=== PATIENT | male | born 1995 | race Caucasian/White ===

== ENCOUNTER 2016-04-20 22:53 | Emergency (ER) | payer BC ==
[~2016-04-20] VITALS: Ht 170.2 cm; Wt 61.1 kg
[2016-04-20 23:02] VITALS: TEMP 37; Ht 170.2 cm; Wt 61.1 kg
[2016-04-20] MEDS ORDERED: SODIUM CHLORIDE 0.9% 1000ML 1,000 ML IV ONE ×2 (23:15)
[2016-04-20] MEDS ORDERED: ONDANSETRON INJ 2 MG/ML 2 ML VIAL IV STA (23:15)
[2016-04-20 23:33] LABS: BASO % 0.1 %; BASO ABS # 0.01 K/uL (0-0.2); COMPLETE YES; EOS % 1.3 %; HEMATOCRIT 46.5 % (42-52); IG% 0.2 %; LYMPH % 10.3 %; LYMPH ABS # 1.19 K/uL (1.2-3.4); MEAN CELL VOLUME 92.4 fL (80-100); MEAN CORPUSCULAR HEMOGLOBIN 33.6 pg (25-34); MEAN CORPUSCULAR HGB CONC 36.3 g/dl (32-36); MEAN PLATELET VOLUME 12.6 fL (7.4-10.4); MONO % 7.9 %; NEUT % 80.2 %; PLATELET COUNT 222 K/uL (130-400); RED BLOOD COUNT 5.03 M/uL (4.7-6.1)
[2016-04-20 23:50] LABS: BUN/CREATININE RATIO 16.3 (10-20); CALCIUM 9.6 mg/dl (8.5-10.1); POTASSIUM 3.7 mmol/L (3.5-5.1)
[2016-04-20 23:53] LABS: ALB/GLOB RATIO 1.4 (0.9-2)
[2016-04-21] MEDS ORDERED: DiphenhydrAMINE HCL 50 MG/ML VIAL IV STA (00:20)
[2016-04-21] MEDS ORDERED: METHYLPREDNISOLONE 125 MG VIAL IV STA (00:20)
[2016-04-21 01:42] LABS: URINE APPEARANCE TURBID (CLEAR); URINE BILIRUBIN NEG (NEG); URINE COLOR DK YELLOW; URINE EPITHELIAL CELL AUTO >30 /lpf (0-5); URINE NITRITE NEG (NEG); URINE PH 5.5 (4.5-7.5); URINE SPECIFIC GRAVITY 1.036 (1.000-1.030); UROBILINOGEN NEG (NEG); ZZUR CULT IF INDIC CLEAN CATCH NO
[2016-04-21 01:50] LABS: MANUAL MICROSCOPIC REQUIRED? NO; REVIEW REQ? NO
[2016-04-21] MEDS ORDERED: PRED20TA2 PO (02:15)
[2016-04-21 02:26] VITALS: BP 124/60; PULSE 55; O2SAT 99
--- NOTE | 2016-04-24 22:37 | EMERGENCY ROOM VISIT NOTE ---
History First contact with patient: 23:06 Chief Complaint: ABDOMINAL PAIN Stated Complaint: ABD PAIN FOLLOWING 30+ HOURS OF VOMITING/DIARRHEA Nursing Triage Summary: abd pain and cramping with vomiting and diarrhea since wednesday. History of Present Illness The patient is a 20 year old male who presents to the Emergency Room with complaints of nausea, vomiting, and diarrhea for the past 30 hours. The patient has not been able to eat and drink well, prompting his presentation to the department. He does not have a recent travel history and has not recently been on antibiotics. The patient rates his overall discomfort a 9/10. He does not have known exposure to disease, but is a student on campus. He has not had a fever, and he considers himself otherwise usually healthy. Review of Systems More than 10 systems were reviewed and otherwise negative with the exception of history of present illness. Past Medical/Surgical History No chronic medical disease Family History No pertinent family history Social History Smoking Status: Never Smoker Occupation Status: [employer] student Current/Historical Medications Scheduled Prednisone (Prednisone Tab), 2 TAB PO DAILY Allergies Coded Allergies: Ondansetron (Verified Allergy, Intermediate, hives, 04/21/16) Physical Exam Vital Signs Date Time Temp Pulse Resp B/P Pulse Ox O2 Delivery O2 Flow Rate FiO2 04/21/16 02:26 55 20 124/60 99 04/21/16 00:20 49 20 125/66 100 Room Air 04/20/16 23:02 37.0 52 18 131/84 100 Room Air Pain Rating (0-10): 0 Physical Exam VITALS: Vitals are noted on the nurse's note and reviewed by myself. Vital signs stable. GENERAL: Well-developed, well-nourished, white male who appears cooperative with the examination. HEAD: Normocephalic atraumatic. MOUTH: Mucous membranes dry. Tonsils are not enlarged. Pharynx without erythema, blood, or exudate. Uvula midline. Airway patent. NECK: Supple without nuchal rigidity. No lymphadenopathy. No thyromegaly. Cervical spine is nontender. HEART: Regular rate and rhythm without murmurs gallops or rubs. LUNGS: Clear to auscultation bilaterally without wheezes, rales or rhonchi. No retractions or accessory muscle use. ABDOMEN: Positive normal bowel sounds x 4. Soft, nontender, without masses or organomegaly. No guarding or rebound tenderness. MUSCULOSKELETAL: No muscle atrophy, erythema, or edema noted. Full range of motion without joint tenderness in all extremities. Skin without tenting. Medical Decision & Procedures Laboratory Results 04/20/16 23:25 Red Blood Count 5.03, Mean Corpuscular Volume 92.4, Mean Corpuscular Hemoglobin 33.6, Mean Corpuscular Hemoglobin Concent 36.3, Mean Platelet Volume 12.6, Neutrophils (%) (Auto) 80.2, Lymphocytes (%) (Auto) 10.3, Monocytes (%) (Auto) 7.9, Eosinophils (%) (Auto) 1.3, Basophils (%) (Auto) 0.1, Neutrophils # (Auto) 9.31, Lymphocytes # (Auto) 1.19, Monocytes # (Auto) 0.92, Eosinophils # (Auto) 0.15, Basophils # (Auto) 0.01 04/20/16 23:25 Test 04/20/16 23:25 04/21/16 01:23 White Blood Count 11.60 K/uL (4.8-10.8) Red Blood Count 5.03 M/uL (4.7-6.1) Hemoglobin 16.9 g/dL (14.0-18.0) Hematocrit 46.5 % (42-52) Mean Corpuscular Volume 92.4 fL (80-100) Mean Corpuscular Hemoglobin 33.6 pg (25-34) Mean Corpuscular Hemoglobin Concent 36.3 g/dl (32-36) Platelet Count 222 K/uL (130-400) Mean Platelet Volume 12.6 fL (7.4-10.4) Neutrophils (%) (Auto) 80.2 % Lymphocytes (%) (Auto) 10.3 % Monocytes (%) (Auto) 7.9 % Eosinophils (%) (Auto) 1.3 % Basophils (%) (Auto) 0.1 % Neutrophils # (Auto) 9.31 K/uL (1.4-6.5) Lymphocytes # (Auto) 1.19 K/uL (1.2-3.4) Monocytes # (Auto) 0.92 K/uL (0.11-0.59) Eosinophils # (Auto) 0.15 K/uL (0-0.5) Basophils # (Auto) 0.01 K/uL (0-0.2) RDW Standard Deviation 42.6 fL (36.4-46.3) RDW Coefficient of Variation 12.6 % (11.5-14.5) Immature Granulocyte % (Auto) 0.2 % Immature Granulocyte # (Auto) 0.02 K/uL (0.00-0.02) Anion Gap 12.0 mmol/L (3-11) Est Creatinine Clear Calc Drug Dose 102.7 ml/min Estimated GFR () 125.9 Estimated GFR (Non- 108.6 BUN/Creatinine Ratio 16.3 (10-20) Calcium Level 9.6 mg/dl (8.5-10.1) Total Bilirubin 0.8 mg/dl (0.2-1) Aspartate Amino Transf (AST/SGOT) 24 U/L (15-37) Alanine Aminotransferase (ALT/SGPT) 29 U/L (12-78) Alkaline Phosphatase 68 U/L (45-117) Total Protein 8.2 gm/dl (6.4-8.2) Albumin 4.8 gm/dl (3.4-5.0) Globulin 3.4 gm/dl (2.5-4.0) Albumin/Globulin Ratio 1.4 (0.9-2) Lipase 162 U/L (73-393) Urine Color DK YELLOW Urine Appearance TURBID (CLEAR) Urine pH 5.5 (4.5-7.5) Urine Specific [place] 1.036 (1.000-1.030) Urine Protein TRACE (NEG) Urine Glucose (UA) NEG (NEG) Urine Ketones TRACE (NEG) Urine Occult Blood NEG (NEG) Urine Nitrite NEG (NEG) Urine Bilirubin NEG (NEG) Urine Urobilinogen NEG (NEG) Urine Leukocyte Esterase NEG (NEG) Urine WBC (Auto) 1-5 /hpf (0-5) Urine RBC (Auto) 0-4 /hpf (0-4) Urine Hyaline Casts (Auto) 1-5 /lpf (0-5) Urine Epithelial Cells (Auto) >30 /lpf (0-5) Urine Bacteria (Auto) NEG (NEG) Date/Time Source Procedure Growth Status 04/20/16 23:40 Stool C.difficile Toxin B Gene (PCR) - Final No C. difficile toxin B gene detected Complete Medications Administered Medications (Trade) Dose Ordered Sig/Abdon Route Start Time Stop Time Status Last Admin Dose Admin Sodium Chloride 1,000 ml @ 999 mls/hr Q1H1M ONCE IV 04/20/16 23:15 04/21/16 00:15 DC 04/20/16 23:36 999 MLS/HR Sodium Chloride (Nss 1000ml) 1,000 ml @ 999 mls/hr Q1H1M ONCE IV 04/20/16 23:15 04/21/16 00:15 DC 04/20/16 23:37 999 MLS/HR Ondansetron HCl (Zofran Inj) 4 mg NOW STAT IV 04/20/16 23:15 04/20/16 23:17 DC 04/20/16 23:37 4 MG Methylprednisolone Sodium Succinate (Solu-Medrol IV) 125 mg NOW STAT IV 04/21/16 00:20 04/21/16 00:21 DC 04/21/16 00:27 125 MG Diphenhydramine HCl (Benadryl Inj) 25 mg NOW STAT IV 04/21/16 00:20 04/21/16 00:21 DC 04/21/16 00:27 25 MG ED Course Physical exam and history were performed. Nursing notes and EMR were reviewed. Patient appears to have nausea, vomiting, diarrhea for the past 30 hours. The patient does appear clinically dehydrated. IV access was established and labs were obtained. The patient was hydrated with 2 L normal saline and given 4 mg IV Zofran. He was able to provide a stool sample which was sent to the lab. The patient's blood work is as above and was reviewed. He does not have a significantly elevated white blood cell count, anemia, bandemia, or gross electrolyte imbalance. Lipase and transaminases are nondiagnostic. Stool was negative for C. difficile with cultures pending. Approximately 30 minutes after being provided the IV Zofran I was called back to the room as the patient was having an allergic reaction to this medication. He developed distinct urticarial hives primarily on his left shoulder, right- sided chest, and lower abdomen. These were not present on initial evaluation and are felt to be related to his Zofran dosing. Because of his allergic reaction he was given Solu-Medrol and Benadryl here in the department. The patient was monitored for several hours here in the emergency department. Despite having an allergic reaction to the Zofran, his nausea symptoms were significantly improved and he was able to drink small amounts of fluid without difficulty here in the department. After the Solu-Medrol and Benadryl, his hives resolved without evolving further. Overall the patient does appear stable for discharge home. I suspect his nausea and vomiting are secondary to a viral infection as he continued to have a nontender abdomen. I recommended that he no longer takes Zofran as he appears allergic to this medication. He was instructed on the use of over-the- counter Benadryl and will be given a short course of prednisone for this. The patient was otherwise invited back to the ER anytime with any new, worsening, or concerning symptoms. The chart was completed utilizing [employer] Speech Voice Recognition Software. Grammatical errors, random word insertions, pronoun errors, and incomplete sentences are an occasional consequence of this system due to software limitations, ambient noise, and hardware issues. Any formal questions or concerns about the content, text, or information contained within the body of this dictation should be directly addressed to the provider for clarification. . Medical Decision Differential diagnosis: Etiologies such as gastroenteritis, food borne illness, infections, appendicitis , diverticulitis, inflammatory bowel disease, obstruction, GI bleed, biliary pathology, as well as others were entertained. Impression Primary Impression: Nausea and vomiting Additional Impression: Allergic reaction caused by a drug Departure Information Dispostion Home / Self-Care Condition GOOD Prescriptions Prednisone (Prednisone Tab) 20 Mg Tab 2 TAB PO DAILY for 3 Days, #6 TAB Prov: Aftab Molina PA-C 04/21/16 Forms HOME CARE DOCUMENTATION FORM, IMPORTANT VISIT INFORMATION Patient Instructions My [facility] Additional Instructions You were seen and evaluated today on an emergency basis only. This is not a substitute for, or an effort to provide, complete comprehensive medical care. It is not possible to recognize and treat all injuries or illnesses in a single emergency department visit. For this reason it is recommended that you followup with [facility] this week with any ongoing or persistent symptoms. You had an allergic reaction to Zofran today. Please do not take this medication in the future. Because of your allergic reaction please take prednisone 40 mg daily for the next 3 days. Drink plenty of fluids and remain well hydrated. You are welcome to return to the emergency department anytime with new, worsening, or concerning symptoms. Problem Qualifiers
== END 2016-04-21 02:27 | disposition home or self-care (01) ==
LOC: C.EDB 22:54 → C.EDC 04-21 02:27
DX: T78.40XA Allergy, unspecified, initial encounter (principal); X58.XXXA Exposure to other specified factors, initial encounter; R11.2 Nausea with vomiting, unspecified; Z88.8 Allergy status to other drugs, medicaments and biological substances